=== PATIENT | female | born 1960 | race Two or more races ===

== ENCOUNTER 2024-04-16 12:06 | Emergency (ER) | payer OTHER ==
[2024-04-16 12:52] VITALS: RESP 18; TEMP 97.7; BMI 30.5
[2024-04-16] MEDS ORDERED: ACETAMINOPHEN 325 MG TABLET (FP) ONE (14:20)
[2024-04-16] MEDS: ACETAMINOPHEN 500 MG TABLET (FP) PO ONE (14:29)
[2024-04-16 15:13] VITALS: BP 132/76; PULSE 81
== END 2024-04-16 15:13 | disposition home or self-care (01) ==
LOC: JER 12:06
DX: M71.22 Synovial cyst of popliteal space [Baker], left knee (principal); M79.662 Pain in left lower leg
CPT/HCPCS: 93971-TC; 99284-25